=== PATIENT | female | born 2000 | race Two or more races ===

== ENCOUNTER → 2018-10-20 | Outpatient (CLI) | payer BC ==
--- NOTE | 2018-10-21 13:25 | MR ---
Pelvis MRI with and without contrast HISTORY: Stress fracture, pain in right hip, abnormal findings Multisequence and postcontrast images obtained through the pelvis following 5 cc Gadavist IV. Correlation to prior outside MRIs pelvis and right hip dated and May 2018 respectively. The right sacral ala which showed abnormal signal on previous exam now shows improvement in signal ch aracteristics on T1 and T2-weighted sequences. The low signal seen on T1-weighted images involving th e right sacral ala previously change to slight mild asymmetric increased signal, isointense on T2 and STIR sequences. Some minimal residual increased signal on T1-weighted images is present without sign ificant enhancement following contrast administration. Fluid is present within the pelvis. Uterus and adnexal structures unremarkable. There is likely a pes umm in place, correlate with patient's history. Hips show symmetric appearance. Small amount of flui d present within the hip joints. Articular cartilage is maintained. No evident labral tear. IMPRESSION: Findings compatible with healing sacral alar stress fracture.
== END | disposition home or self-care (01) ==
LOC: RADMRIMAIN 08:03
PROVIDERS: ATTEND Family Medicine
DX: M25.551 Pain in right hip (principal); R93.6 Abnormal findings on diagnostic imaging of limbs
CPT/HCPCS: 72197; A9585

== ENCOUNTER → 2018-12-25 | Outpatient (CLI) | payer BC, OTHER ==
--- NOTE | 2018-12-25 11:40 | XR ---
EXAMINATION TYPE: XR sacrum coccyx DATE OF EXAM: 12/25/2018 COMPARISON: NONE HISTORY: Pain Three views are submitted. Sacrum is intact. SI joints are symmetric. Coccyx appears to be intact. Visualized pelvic structures intact. Spina bifida occulta S1 level. Fracture noted by previous MRI is not well seen by standard x-ray.. IMPRESSION: 1. Previously noted fracture not well-seen by standard x-ray could BE correlated with follow-up CT or MRI as clinically warranted.
== END | disposition home or self-care (01) ==
LOC: RADXRYALE 10:59
PROVIDERS: ATTEND Physician Assistant Medical
DX: M53.3 Sacrococcygeal disorders, not elsewhere classified (principal)
CPT/HCPCS: 72220